=== PATIENT | male | born 1955 | race Caucasian/White ===

== ENCOUNTER → 2016-12-11 | Outpatient (CLI) | payer BC ==
[~2016-12-11] MED LIST: ATOR-22 PO; GLCSC500400 PO; OMEG10007 PO
[2016-12-11 13:08] LABS: ESTIMATED AVERAGE GLUCOSE 120 mg/dl; HA1C FLAG Normal (Normal)
[2016-12-11 16:13] LABS: CREATININE RANDOM URINE 79.5 mg/dl
[2016-12-11 16:27] LABS: RATIO 11.7 mcg/mg (0-30.0)
[2016-12-11 16:34] LABS: ALT/SGPT 25 U/L (12-78); BLOOD UREA NITROGEN 18 mg/dl (7-18); BUN/CREATININE RATIO 21.6 (10-20); CARBON DIOXIDE 25 mmol/L (21-32); CHLORIDE 107 mmol/L (98-107); CHOLESTEROL 104 mg/dl (0-200); CREATININE 0.81 mg/dl (0.60-1.40); GLUCOSE 96 mg/dl (70-99); POTASSIUM 4.2 mmol/L (3.5-5.1); SODIUM 139 mmol/L (136-145); TRIGLYCERIDES 100 mg/dl (0-150); VERY LOW DENSITY LIPOPROT CALC 20 mg/dl
[2016-12-11 16:38] LABS: ALB/GLOB RATIO 1.2 (0.9-2); ALKALINE PHOSPHATASE 85 U/L (45-117); AST/SGOT 15 U/L (15-37); HDL CHOLESTEROL 51 mg/dl; LDL CHOLESTEROL CALCULATED 33 mg/dl
== END | disposition home or self-care (01) ==
LOC: C.LABPVFM 07:32
PROVIDERS: ATTEND Family Medicine
DX: E78.5 Hyperlipidemia, unspecified (principal); N52.9 Male erectile dysfunction, unspecified; E11.21 Type 2 diabetes mellitus with diabetic nephropathy; R42 Dizziness and giddiness

== ENCOUNTER 2018-10-17 09:59 | Inpatient (IN) ==
--- NOTE | 2018-10-02 16:41 | PAT Medication Instructions ---
Medication Instructions Date of Service October 02, 2018 Home Medications Medication Instructions Recorded blood sugar diagnostic strips #10 ea 07/23/18 lancets 33 gauge #100 ea 07/23/18 aspirin [Aspir-81] 81 mg PO QAM atorvastatin 40 mg PO QPM cyanocobalamin (vitamin B-12) 500 mcg PO QAM [Glucosamine Complex-MSM] 2 cap PO QAM ibuprofen 600 mg PO Q6H PRN lisinopril 5 mg PO QPM metformin 1,000 mg PO BID multivitamin 1 tab PO QAM sildenafil 100 mg PO UD PRN ASK your surgeon for instructions aspirin [Aspir-81] 81 mg PO QAM ibuprofen 600 mg PO Q6H PRN STOP taking 2 weeks before surgery [Glucosamine Complex-MSM] 2 cap PO QAM DO NOT take the morning of surgery cyanocobalamin (vitamin B-12) 500 mcg PO QAM metformin 1,000 mg PO BID multivitamin 1 tab PO QAM sildenafil 100 mg PO UD PRN Take evening before surgery atorvastatin 40 mg PO QPM lisinopril 5 mg PO QPM metformin 1,000 mg PO BID sildenafil 100 mg PO UD PRN (if needed) Other Notes If you have any questions please call us at [phone] or [phone] or [phone] or [phone]
--- NOTE | 2018-10-03 09:28 | Anesthesiology Consultation ---
Date of Service October 03, 2018 Assessment & Plan (1) Encounter for pre-operative examination: - Check BSG AM DOS Chart Review Chart Review: Acceptable Risk for Surgery and Patient seen in Pre Admission Testing Teaching & Discussion Pre-Anesthesia Teaching/Discussion Notes: Instructed NPO after midnight before surgery,except medications with 15 cc of water. Medication instructions provided according to the PAT guidelines. History Surgery Operation Date: 10/17/18 11:10 Proposed Procedures p Laparoscopic Robotic Assisted Radical Retropubic Prostatectomy, Possible Open, Possible Pelvic Lymph Node Dissection, Possible Suprapubic Tube Placement - Nile Bell MD Height/Weight Height: 5 ft 8 in Weight: 103.6 kg Allergies Allergy/AdvReac Type Severity Reaction Status Date / Time No Known Allergies Allergy Verified 09/27/18 13:54 Medications Home Medications Medication Instructions Recorded Confirmed Last Taken blood sugar diagnostic strips #10 ea 07/23/18 07/23/18 Unknown lancets 33 gauge #100 ea 07/23/18 07/23/18 Unknown aspirin [Aspir-81] 81 mg PO QAM 09/27/18 09/27/18 Unknown atorvastatin 40 mg PO QPM 09/27/18 09/27/18 Unknown cyanocobalamin (vitamin B-12) 500 mcg PO QAM 09/27/18 09/27/18 Unknown bwzkoaprrmn-ynt-belmxxstg-vitC 2 cap PO QAM 09/27/18 09/27/18 Unknown [Glucosamine Complex-MSM] ibuprofen 600 mg PO Q6H PRN 09/27/18 09/27/18 Unknown lisinopril 5 mg PO QPM 09/27/18 09/27/18 Unknown metformin 1,000 mg PO BID 09/27/18 09/27/18 Unknown multivitamin 1 tab PO QAM 09/27/18 09/27/18 Unknown sildenafil 100 mg PO UD PRN 09/27/18 09/27/18 Unknown Past Medical History Medical History Diabetes type 2, controlled NIDDM Dyslipidemia Erectile dysfunction Hypertension Obesity Cancer prostate Exercise / Class Metabolic Activity II 4-5 Yardwork/Stairs/Walk up hill Past Family History Family History Father Family history of diabetes mellitus Brother Family history of diabetes mellitus Mother Family hx of colon cancer Past Surgical History Surgical History History of colonoscopy History of oral surgery FOR IMPLANTS Hx of vasectomy Past Anesthesia History No Hx of Anesthesia Complications and No Family Hx of Anesthesia Complications History of PONV No Hx of PONV and Hx of Motion Sickness Social History Smoking Status: Never smoker Do You Dip or Chew Tobacco: No Hx Alcohol Use: No Hx Substance Use: No Review of Systems Patient denies chest pain, shortness of breath, dyspnea on exertion, reflux, cough, wheezing, palpitations. Physical Exam Vital Signs VITALS BP 141/67 P 76 TEMP 98.2 SP02 95%RA RESP 18 PHYSICAL Full neck and c-spine range of motion. Full TMJ range of motion. TMD 2.5 finger breaths (small chin) Mallampati Score 2 Dentition: intact, crowns/permanent implants on molars Lungs: clear throughout to auscultation Cardiac: regular rate and rhythm, no murmurs noted Spine: normal Carotid arteries: negative bruit Extremities: no edema Testing Laboratory Results 10/03/18 09:49 10/03/18 09:49 Urine Color Yellow 10/03/18 Unknown Urine Appearance Clear (Clear) 10/03/18 Unknown Urine pH 5.5 (4.5-7.5) 10/03/18 Unknown Ur Specific [place] 1.020 (1.000-1.030) 10/03/18 Unknown Urine Protein Negative (Negative) 10/03/18 Unknown Urine Glucose (UA) Negative (Negative) 10/03/18 Unknown Urine Ketones Negative (Negative) 10/03/18 Unknown Urine Nitrite Negative (Negative) 10/03/18 Unknown Ur Leukocyte Esterase Negative (Negative) 10/03/18 Unknown Blood Type A Positive 10/03/18 09:49 Antibody Screen NEGATIVE 10/03/18 09:49 07/29/18 HGBA1C 6.3% Electrocardiogram Date: 10/03/18 NSR at 69bpm. RBBB. Chest X-Ray Date: 10/03/18 Findings: + NAD Cardiac silhouette mildly enlarged. Apparent pleural thickening may be due to extrapleural fat.
--- NOTE | 2018-10-03 10:28 | XRay Report ---
XR chest Pre-admission PA/Lat CLINICAL HISTORY: 63 years-old Male presenting with preoperative assessment. TECHNIQUE: PA and lateral views of the chest were obtained. COMPARISON: None. FINDINGS: Cardiac silhouette mildly enlarged. Apparent pleural thickening may be due to extrapleural fat. Lungs and pleural spaces clear. Osseous structures normal. Upper abdomen normal. IMPRESSION: 1. No acute cardiopulmonary disease. Electronically signed by: Martin Olmos M.D. 10/03/2018 10:27 AM
[2018-10-03 10:54] LABS: Basophils # (auto) 0.06 K/uL (0-0.2); Basophils % (auto) 0.9 %; Eosinophils # (auto) 0.24 K/uL (0-0.5); Eosinophils % (auto) 3.5 %; Hematocrit (blood only) 45.8 % (42-52); Hemoglobin 16.1 g/dL (14.0-18.0); Immature Granulocytes # (auto) 0.02 K/uL (0.00-0.02); Immature Granulocytes % (auto) 0.3 %; Lymphocytes # (auto) 1.84 K/uL (1.2-3.4); Lymphocytes % (auto) 27.1 %; Mean Corpuscular Hgb Conc 35.2 g/dL (32-36); Mean Corpuscular Volume 88.9 fL (80-100); Mean Platelet Volume 10.9 fL (7.4-10.4); Monocytes # (auto) 0.69 K/uL (0.11-0.59); Monocytes % (auto) 10.1 %; Neutrophils # (auto) 3.95 K/uL (1.4-6.5); Neutrophils % (auto) 58.1 %; Platelet Count 201 K/uL (130-400); RDW Coefficient of Variation 12.4 % (11.5-14.5); RDW Standard Deviation 39.7 fL (36.4-46.3); Red Blood Count 5.15 M/uL (4.7-6.1)
[2018-10-03 10:55] LABS: Appearance Urine Clear (Clear); Bilirubin Urine Negative (Negative); Blood Urine Negative (Negative); Color Urine Yellow; Glucose Urine UA Negative (Negative); Ketones Urine Negative (Negative); Leukocyte Esterase Urine Negative (Negative); Nitrite Urine Negative (Negative); Protein Urine Negative (Negative); Urobilinogen Urine Negative (Negative); pH Urine 5.5 (4.5-7.5)
[2018-10-03 11:11] LABS: BUN Creatinine Ratio 12.8 (10-20); Creatinine Clr Calc Pharmacy 102.7 ml/min; Est GFR (African American) 107.2; Est GFR (Non-African American) 92.5
[~2018-10-17 09:59] MED LIST changes: +ACETAMINOPHEN 1,000 MG/100 ML VIAL IV SCH; -ATOR-22 PO; +CEFAZOLIN 2000MG 2,000 MG/15 ML SYR IV SCH; -GLCSC500400 PO; +HEPARIN SOD 5,000 UNIT/0.5 ML VIAL SQ SCH; +LR 15ML/HR IV SCH; -OMEG10007 PO
[2018-10-17] MEDS ORDERED: GLYCOPYRROLATE 0.2 MG/ML VIAL ONE (10:09)
[2018-10-17] MEDS ORDERED: HYDROmorphone INJ 2 MG/ML SYR/VIAL ONE (10:09)
[2018-10-17] MEDS ORDERED: ONDANSETRON INJ 2 MG/ML 2 ML VIAL ONE (10:09)
[2018-10-17] MEDS ORDERED: SODIUM CHLORIDE 0.9% INJ 10 ML VIAL ONE (10:09)
[2018-10-17] MEDS ORDERED: DEXAMETHASONE SOD INJ 4 MG/ML VIAL ONE (10:09)
[2018-10-17] MEDS ORDERED: ROCURONIUM BROMIDE 10 MG/ML 5 ML VIAL ONE ×3 (10:09→13:55)
[2018-10-17] MEDS ORDERED: PROPOFOL IV EMULSION 10 MG/ML 20 ML VIAL IV ONE (10:09)
[2018-10-17] MEDS ORDERED: NEOSTIGMINE METHYLSULFATE 5 MG/5 ML SYR ONE (10:09)
[2018-10-17] MEDS ORDERED: fentaNYL citrate 100 MCG/2 ML VIAL ONE ×2 (10:09→15:51)
[2018-10-17] MEDS ORDERED: MIDAZOLAM HCL 1 MG/ML 2ML VIAL ONE (10:09)
[2018-10-17] MEDS ORDERED: LIDOCAINE HCL 2% 2 ML VIAL/AMP(20MG/ML) INFIL ONE (10:09)
[2018-10-17] MEDS ORDERED: fentaNYL citrate 100 MCG/2 ML VIAL IV PRN (11:09)
[2018-10-17] MEDS ORDERED: ATROPINE SULFATE 0.1 MG/ML 10ML SYR IV PRN (11:09)
[2018-10-17] MEDS ORDERED: METOCLOPRAMIDE HCL INJ 5 MG/ML 2 ML VIAL IV PRN (11:09)
[2018-10-17] MEDS ORDERED: PROMETHAZINE HCL 12.5 MG in SODIUM CHLORIDE 0.9% 50 ML IV PRN (11:09)
[2018-10-17] MEDS ORDERED: ONDANSETRON INJ 2 MG/ML 2 ML VIAL IV PRN ×2 (11:09→17:35)
[2018-10-17] MEDS ORDERED: ePHEDrine sulfate 50 MG/ML AMP IV PRN (11:09)
[2018-10-17] MEDS ORDERED: HYDROmorphone INJ 2 MG/ML SYR/VIAL IV PRN (11:09)
--- NOTE | 2018-10-17 11:28 | History & Physical Bridge Note ---
Date of Service October 17, 2018 History & Physical Bridge Note I have examined the patient, reviewed the History & Physical and in the interval since the performance of the History & Physical I have noted the following changes of clinical significance: no changes noted
[2018-10-17] MEDS ORDERED: BUPIVACAINE 0.5 % 5 MG/1 ML MPF 30ML VIAL ONE (12:10)
[2018-10-17] MEDS ORDERED: SURGICEL ABSORB HEMOSTAT 2IN X 14IN TOP ONE (13:03)
[2018-10-17] MEDS ORDERED: FLOSEAL HEMOSTATIC MATRIX 10ML TOP ONE (13:04)
[2018-10-17] MEDS ORDERED: BUPIVACAINE 0.5 % 5 MG/1 ML MPF 30ML VIAL INFIL ONE (16:18)
--- NOTE | 2018-10-17 16:23 | Operative Report ---
Post Operative Report Pre & Post Diagnosis Operation Date: 10/17/18 11:10 Pre-Op Diagnosis: Prostate Cancer Post-Op Diagnosis: Prostate Cancer, umbilical hernia, intraabdominal adhesions Procedure Operation Date: 10/17/18 11:10 Actual Procedures p Laparoscopic Robotic Assisted Radical Retropubic Prostatectomy,Bilateral Pelvic Lymph Node Dissection, Laparoscopic Lysis of Adhesions, Repair of Umbilical Hernia - Nile Bell MD Surgeon Nile Bell MD [employer] BASHIR Mcnamara Estimated Blood Loss 300 Findings Consistent with Post-Op Diagnosis Specimens Periprostatic fat, prostate + SVs, L and R PLN, umbilical hernia fat and sac Description of Procedure See above I attest to the content of the Intraoperative Record and any orders documented therein. Any exceptions are noted below.
[2018-10-17 16:58] LABS: Basophils # (auto) 0.03 K/uL (0-0.2); Basophils % (auto) 0.3 %; Eosinophils # (auto) 0.03 K/uL (0-0.5); Eosinophils % (auto) 0.3 %; Hematocrit (blood only) 44.9 % (42-52); Immature Granulocytes # (auto) 0.04 K/uL (0.00-0.02); Immature Granulocytes % (auto) 0.3 %; Lymphocytes # (auto) 0.98 K/uL (1.2-3.4); Lymphocytes % (auto) 8.3 %; Mean Corpuscular Volume 87.9 fL (80-100); Mean Platelet Volume 10.4 fL (7.4-10.4); Monocytes # (auto) 0.41 K/uL (0.11-0.59); Monocytes % (auto) 3.5 %; Neutrophils # (auto) 10.35 K/uL (1.4-6.5); Neutrophils % (auto) 87.3 %; Platelet Count 175 K/uL (130-400); RDW Coefficient of Variation 12.2 % (11.5-14.5); Red Blood Count 5.11 M/uL (4.7-6.1); White Blood Count 11.84 K/uL (4.8-10.8)
[2018-10-17 17:19] LABS: Mean Corpuscular Hgb Conc 35.6 g/dL (32-36)
[2018-10-17] MEDS: LACTATED RINGER'S 1,000 ML IV SCH (17:25)
[2018-10-17 17:28] LABS: BUN Creatinine Ratio 14.3 (10-20); Calcium 8.4 mg/dl (8.5-10.1); Creatinine Clr Calc Pharmacy 87.8 ml/min; Est GFR (African American) 89.8; Est GFR (Non-African American) 77.5
[2018-10-17] MEDS ORDERED: MoRPHine SULFATE 10 MG/ML CARP/VIAL IV PRN (17:35)
[2018-10-17] MEDS ORDERED: OXYCODONE HCL IR 5 MG TAB (IMMEDIATE RELEASE) PO PRN (17:35)
[2018-10-17] MEDS ORDERED: ACETAMINOPHEN 1,000 MG/100 ML VIAL IV PRN (17:35)
--- NOTE | 2018-10-17 17:39 | Anesthesiology Progress Note ---
Date of Service October 17, 2018 Anesthesia Post Procedure Vital Signs Vital Signs: Temp Pulse Pulse Resp BP BP Pulse Ox 10/17/18 17:05 91 H 14 146/87 H 97 10/17/18 16:55 85 14 155/85 H 100 10/17/18 16:45 87 13 157/94 H 100 10/17/18 16:37 36.4 C L 100 H 13 156/87 H 99 10/17/18 10:51 36.7 C 75 18 150/73 H 95 Transfer of Care Handoff Completed per policy Notes Mental Status: alert / awake / arousable and participated in evaluation Patient Amnestic to Procedure: Yes Nausea / Vomiting: adequately controlled Pain: adequately controlled Airway Patency, RR, SpO2: stable & adequate BP & HR: stable & adequate Hydration State: stable & adequate Anesthetic Complications: no major complications apparent
[2018-10-17] MEDS ORDERED: PHARMACY GLYCEMIC MGMT CONSULT PRN (17:55)
[2018-10-17 18:27] LABS: INR 1.1 (0.9-1.1); Prothrombin Time 10.9 Seconds (9.0-12.0)
[2018-10-17] MEDS ORDERED: GLUCAGON FOR INJ 1 MG VIAL IM PRN (19:30)
[2018-10-17] MEDS ORDERED: CARBOHYDRATES FOR HYPOGLYCEMIA PO PRN (19:30)
[2018-10-17] MEDS ORDERED: GLUCOSE 10 TABS/TUBE PO PRN (19:30)
[2018-10-17] MEDS ORDERED: GLUCOSE 40% GEL 15 GM TUBE PO PRN (19:30)
[2018-10-17] MEDS ORDERED: DEXTROSE 50% 50 ML SYRINGE IV PRN (19:30)
--- NOTE | 2018-10-17 20:17 | Operative Report ---
DATE OF OPERATION: 10/17/2018 PREOPERATIVE DIAGNOSES: High volume pT2b [place] 4+3 CAP, pretreatment PSA of 59. POSTOPERATIVE DIAGNOSES: Same. PROCEDURE: Robot-assisted laparoscopic radical retropubic prostatectomy with bilateral pelvic lymph node dissection, laparoscopic lysis of adhesions and repair of umbilical hernia. SURGEON: Dr. Nile Bell. HOME CARE CHAPLAIN: BASHIR Gonzalez. Jail Guard was present throughout the case for retraction, instrument passage and suture passage, management of a camera, patient positioning and intra-abdominal access, suction, application of hemostatic agents and general patient safety. ANESTHESIA: General anesthesia with endotracheal intubation plus local at all port sites. ESTIMATED BLOOD LOSS: 300 mL. IV FLUIDS: 1500 mL of crystalloid. DRAINS LEFT IN PLACE: Included a #10 BAO drain in the left lower quadrant and a 20-Kazakh silicone Boyer catheter with 15 mL of sterile water in the balloon per urethra. SPECIMENS SENT TO PATHOLOGY: Periprosthetic fat, prostate plus seminal vesicles, left pelvic lymph nodes, right pelvic lymph nodes, umbilical hernia fat and an umbilical hernia sac. COMPLICATIONS: None. FINDINGS: Watertight anastomosis with excellent hemostasis at the completion of the case. The umbilical hernia with intra-abdominal adhesions requiring extensive lysis to allow for abdominal access, watertight anastomosis after completion of case. Hyperostosis pubis and periprostatic inflammation present. BRIEF HISTORY: Mr. Roberson is a pleasant 63-year-old male seen by my partner Dr. Giron for history of an elevated PSA and abnormal digital rectal examination. A transrectal ultrasound-guided prostate biopsy has demonstrated high volumes of [place] 3+4 prostate cancer. The patient is here today for a radical prostatectomy to manage his disease. Risks and benefits of intervention have been discussed with the patient and family who vocalize good understanding of the treatment plan. Please see H and P for further details. DESCRIPTION OF PROCEDURE: The patient was properly identified and brought into the operative suite after identification of appropriate consent on the chart. General anesthesia with endotracheal intubation was initiated. The patient was prepped and draped in a standard fashion for this procedure. maritime pilot-out procedure was followed. All port sites were anesthetized with local prior to incision. Supraumbilical incision was made in the lateral fashion and it was noted that with every access port significant subcutaneous bleeding was encountered. Abdomen was entered under direct visualization using a 0 degree laparoscope and visual obturator. A copious amount of adhesions at the level of the access were identified, felt to be due to the patient's umbilical hernia. However, these were able to be circumnavigated and the remainder of the abdomen observed safely. Remaining ports were placed for 4th arm robotic template including 2 left-sided 7 mm ports, 1 right-sided 7 mm robotic port and a 5 and 12 mm assistant teacher primary port. The camera was brought in via the 12 mm assistant teacher primary port and using hot and cold scissors as well as blunt Kitner dissection and laparoscopic Bovie, the patient's umbilical hernia sac and other mid abdominal adhesions were able to be divided and reduced. The umbilical hernia was appreciated to contain omental fat with no bowel or other worrisome contents. After this was complete, the patient was placed in Trendelenburg and the robot was brought in and docked. Copious pelvic bowel adhesions were also taken using cold scissors, especially in the region of the sigmoid colon. The 0 degree robotic lens was used to drop the bladder down to the level of the pubic bone. The patient was appreciated at this point to have a significant volume of hyperostosis pubis which precluded visibility of the apex of the prostate or the dorsal venous complex. Endopelvic fascia was sharply entered. The patient was also noted to have a rather narrow pelvis with significant inflammation and oozing around the prostate gland. Endopelvic fascia was sharply entered and a dissection was carried down to the level of the apex as possible. A 30-degree up lens was required to visualize the patient's dorsal venous complex and the apex of the gland. At this point, a dorsal venous complex was oversewn twice, the first time in a [id number] fashion using a 2-0 V-Loc suture and the second in a single pass with a 0 Vicryl suture on a CT1 needle. A significant interference from the patient's bony protuberance at the level of the pubis was appreciated. After this was complete, a 0 degree lens was replaced. Bladder neck was placed on traction and a hook cautery was used to dissect down to the level of the Boyer catheter. Posterior bladder neck was then divided and dropped in the midline. This was continued until the vas deferens and the seminal vesicles were able to be identified. Unfortunately, due to the copious oozing from the plane of dissection and the narrow aspect of the pelvis, further dissection posteriorly was not able to be completed at this point. Attention was then turned to the prosthetic pedicles on both sides where dissection was initiated. Seeing the patient's high grade disease and the plan for a relatively wide dissection, a vessel sealer was used to take the prostatic pedicles in the lateral attachments of the prostate gland. After this was complete, the vas deferens and seminal vesicles were able to be dissected free. Vas deferens were divided and seminal vesicles were mobilized to their tips. Cold scissors were used to drop the rectum in the midline at the level of the apex of the prostate gland. After this was complete, attention was turned to the dorsal venous bundle which was divided using hot scissors. Urethra was skeletonized with a good urethral stump being present. This was then divided and the vascular rectourethralis attachments were also divided. After the prostate was freed, it was brought up into the abdominal cavity and placed within an EndoCatch bag for retrieval at the end of the case. FloSeal tissue sealant was placed on the prostatic bed followed by a sheet of Surgicel for additional hemostasis. The patient's bladder neck was noted to be average in its aperture but not continent at the time of dissection. Generous irrigation of the pelvis was performed and rectum was insufflated under saline irrigation and noted to distend to be free of any injuries. Attention was then turned to the obturator lymph node dissections on both sides. These were carried out using the external iliac vein, obturator nerve and pelvic side wall as the limits of dissection. Lymph nodes were noted to be unremarkable. A significant lymphatic vessels and associated blood vessels were controlled using Weck clips or monopolar cautery as necessary. The obturator nerve was identified on both sides and appreciated to be free of injury after completion of dissection. After both sides were dissected free, the lymph node packets were able to be brought out by the assistant teacher primary through the 12 mm port. FloSeal tissue sealant was placed within the obturator fossa on both sides to allow for excellent hemostasis. Attention was turned to the pelvis where excellent hemostasis was appreciated. Using a double armed V-Loc suture, a circumferential running anastomosis was performed using perineal pressure and circumnavigating the patient's hypertrophic pubis. An excellent posterior urethral back wall was appreciated prior to completion of the case. Seeing the nature of the patient's pelvic anatomy, a 20-Kazakh silicone Boyer catheter was placed with 15 mL of sterile water in the balloon. This was verified to be visually entering the bladder prior to completion of the closure. A small redundancy at the 12 o'clock position of the bladder neck was closed using the excess V-Loc suture in a keyhole fashion. A greater than 120 mL of sterile irrigant was placed within the bladder which was then tested and compressed without evidence of leak from the anastomosis. Sutures were removed and suture and instrument counts were correct. Fourth arm was removed and a #10 BAO drain was brought in via the fourth arm port. Robotic instruments were removed and camera was brought in via the assistant teacher primary port. String to the EndoCatch bag was brought up through the supraumbilical incision. Ports were removed and excess carbon dioxide gas was removed from the abdomen. Supraumbilical incision was enlarged sufficiently to allow for removal of the specimen bag. At this point, the water fat, which had been within the patient's umbilical hernia had been transected was noted to be entering and interfering with the plane of dissection. This was easily able to be removed and dissected free using Bovie cautery. This was handed off as umbilical hernia fat. On completion of the closure, the umbilical hernia sac was also noted to interfere with the ability to close. This was removed and sent as a separate pathologic specimen of the umbilical hernia sac. Adequate fascial tissue was appreciated in the inferior location to the removed sac and fat. Using a #1 Prolene suture, the patient's umbilical hernia and incision were closed together in a running fashion with excellent closure of the fascia being appreciated. Subcutaneous tissues were performed using 2-0 Vicryl sutures with excellent closure. 2-0 silk was used to secure the drain in place and 4-0 Monocryl was used at the remaining skin sites for closure along with Dermabond dressing. Boyer catheter was placed to gravity drainage and BOA to bulb suction. Anesthesia was reversed and patient was transferred to the recovery room in stable condition. FOLLOWUP CARE: The patient will be admitted to the floor for standard postoperative management. I attest to the content of the Intraoperative Record and any orders documented therein. Any exceptions are noted below. JOHN
[2018-10-17] MEDS: OXYCODONE HCL IR 5 MG TAB (IMMEDIATE RELEASE) PO PRN (20:36)
[2018-10-17] MEDS: FAMOTIDINE 20 MG in SYRINGE 3 ML IV SCH (20:37)
[2018-10-17] MEDS: CEFAZOLIN 2000MG 2,000 MG/15 ML SYR IV SCH (20:37)
[2018-10-17] MEDS: DOCUSATE SODIUM 100 MG CAP PO SCH (20:37)
[2018-10-17] MEDS: HEPARIN SOD 5,000 UNIT/0.5 ML VIAL SQ SCH (20:39)
[2018-10-17] MEDS: INSULIN ASPART 100 UNITS/ML 3 ML PEN SC SCH (20:41)
[2018-10-17] MEDS ORDERED: ATORVASTATIN 40 MG TAB PO SCH (21:00)
[2018-10-17] MEDS ORDERED: LISINOPRIL 5 MG TAB PO SCH (21:00)
[2018-10-18] MEDS ORDERED: INSULIN ASPART 100 UNITS/ML 3 ML PEN SC SCH
[2018-10-18] MEDS: OXYCODONE HCL IR 5 MG TAB (IMMEDIATE RELEASE) PO PRN ×3 (00:16→11:49)
[2018-10-18] MEDS: LACTATED RINGER'S 1,000 ML IV SCH (00:30)
[2018-10-18] MEDS: CEFAZOLIN 2000MG 2,000 MG/15 ML SYR IV SCH ×2 (03:58→13:42)
--- NOTE | 2018-10-18 07:29 | Anesthesiology Progress Note ---
Date of Service October 18, 2018 Anesthesia Post Procedure Vital Signs Vital Signs: Temp Pulse Pulse Pulse Resp BP BP 10/18/18 04:00 36.8 C 87 16 123/72 10/17/18 23:14 37.1 C 100 H 16 117/68 10/17/18 20:24 36.7 C 109 H 17 140/73 10/17/18 19:32 36.5 C 106 H 17 145/74 H 10/17/18 18:24 36.3 C L 102 H 18 161/67 H 10/17/18 17:37 36.9 C 89 16 148/79 H 10/17/18 17:05 91 H 14 146/87 H 10/17/18 16:55 85 14 155/85 H 10/17/18 16:45 87 13 157/94 H 10/17/18 16:37 36.4 C L 100 H 13 156/87 H 10/17/18 10:51 36.7 C 75 18 150/73 H Pulse Ox 10/18/18 04:00 93 10/17/18 23:14 92 10/17/18 20:24 94 10/17/18 19:32 96 10/17/18 18:24 95 10/17/18 17:37 96 10/17/18 17:05 97 10/17/18 16:55 100 10/17/18 16:45 100 10/17/18 16:37 99 10/17/18 10:51 95 Notes Mental Status: alert / awake / arousable and participated in evaluation Patient Amnestic to Procedure: Yes Nausea / Vomiting: improving with treatment Pain: adequately controlled Airway Patency, RR, SpO2: stable & adequate BP & HR: stable & adequate Hydration State: stable & adequate Anesthetic Complications: Pt Satisfied with anesthetic care
[2018-10-18 07:56] LABS: Basophils # (auto) 0.01 K/uL (0-0.2); Basophils % (auto) 0.1 %; Eosinophils # (auto) 0.01 K/uL (0-0.5); Eosinophils % (auto) 0.1 %; Hemoglobin 14.9 g/dL (14.0-18.0); Immature Granulocytes # (auto) 0.03 K/uL (0.00-0.02); Immature Granulocytes % (auto) 0.2 %; Lymphocytes # (auto) 1.36 K/uL (1.2-3.4); Lymphocytes % (auto) 10.3 %; Mean Corpuscular Hgb Conc 35.5 g/dL (32-36); Mean Platelet Volume 10.8 fL (7.4-10.4); Monocytes # (auto) 2.21 K/uL (0.11-0.59); Monocytes % (auto) 16.8 %; Neutrophils # (auto) 9.54 K/uL (1.4-6.5); Neutrophils % (auto) 72.5 %; Platelet Count 201 K/uL (130-400); RDW Coefficient of Variation 12.5 % (11.5-14.5); RDW Standard Deviation 40.3 fL (36.4-46.3); Red Blood Count 4.72 M/uL (4.7-6.1); White Blood Count 13.16 K/uL (4.8-10.8)
[2018-10-18 08:26] LABS: BUN Creatinine Ratio 12.2 (10-20); Calcium 8.6 mg/dl (8.5-10.1); Creatinine Clr Calc Pharmacy 81.4 ml/min; Est GFR (Non-African American) 70.8; Potassium 3.8 mmol/L (3.5-5.1)
[2018-10-18] MEDS ORDERED: MULTIVITAMIN TAB PO SCH (09:00)
--- NOTE | 2018-10-18 09:00 | Urology Progress Note ---
Date of Service October 18, 2018 Assessment & Plan (1) Prostate cancer genetic susceptibility: (2) Prostate cancer: A/P 63 yo male with CAP POD#1 s/p RALRP, BPLND. Doing well. Regular diet, HTIVF, henao training. Continue ambulation. Anticipate DC home after lunch. DC instructions reviewed, intraop findings reviewed, OP appointments confirmed. Subjective 63 yo male POD#1 s/p RALRP, BPLND, POD#1. Doing well, ambulatory yesterday, santos clears with good appetite, comfortable. Family in room, no other c/o or events noted. Review of Systems Constitutional: no fever and no chills Eyes: no diplopia Ear, Nose, Mouth, Throat: no ear trauma Respiratory: no hemoptysis Cardiovascular: no chest pain Integumentary: no acne and no boil Neurologic: no paralysis Psychiatric: no hopelessness Allergy / Immunological: no tongue swelling Physical Exam Constitutional: well developed, well nourished and + obese; no acute distress Eyes: eyes not dysmorphic ENMT: Ears: no external ear abnormality Neck: trachea midline; no anterior neck swelling Respiratory: no respiratory distress and does not use accessory muscles Cardiovascular: Vessels: radial pulses present Gastrointestinal (Abdomen): Inspection/Auscultation: abdomen not distended Percussion/Palpation: abdomen soft; abdomen nontender inc c/d/i with minimal bruising, umbilical hernia resolved Musculoskeletal: Head/Neck/Chest: normocephalic and neck supple Skin: normal turgor Neurologic: awake; not obtunded Psychiatric: Orientation: oriented x 3 Lymphatic: no lymphadenopathy Results & Data Vital Signs (Past 12 Hours) Vital Signs Temp Pulse Pulse Resp BP Pulse Ox 10/18/18 07:45 36.9 C 80 20 100/65 94 10/18/18 04:00 36.8 C 87 16 123/72 93 10/17/18 23:14 37.1 C 100 H 16 117/68 92 Laboratory Results Laboratory Results - last 48 hr 10/17/18 10/17/18 10/17/18 10:43 16:40 16:47 WBC 11.84 H RBC 5.11 Hgb 16.0 Hct 44.9 MCV 87.9 MCH 31.3 MCHC 35.6 RDW Std Deviation 39.0 RDW Coeff of Lavinia 12.2 Plt Count 175 MPV 10.4 Immature Gran % (Auto) 0.3 Neut % (Auto) 87.3 Lymph % (Auto) 8.3 [place] % (Auto) 3.5 Eos % (Auto) 0.3 Baso % (Auto) 0.3 Immature Gran # (Auto) 0.04 H Neut # (Auto) 10.35 H Lymph # (Auto) 0.98 L [place] # (Auto) 0.41 Eos # (Auto) 0.03 Baso # (Auto) 0.03 PT INR Sodium Potassium Chloride Carbon Dioxide Anion Gap BUN Creatinine Est Cr Clr Drug Dosing Est GFR ( Amer) Est GFR (Non-Af Amer) BUN/Creatinine Ratio Glucose POC Glucose 122 H 140 H Calcium 10/17/18 10/17/18 10/17/18 16:47 17:34 17:45 WBC RBC Hgb Hct MCV MCH MCHC RDW Std Deviation RDW Coeff of Lavinia Plt Count MPV Immature Gran % (Auto) Neut % (Auto) Lymph % (Auto) [place] % (Auto) Eos % (Auto) Baso % (Auto) Immature Gran # (Auto) Neut # (Auto) Lymph # (Auto) [place] # (Auto) Eos # (Auto) Baso # (Auto) PT INR Sodium 140 Potassium 4.4 Chloride 106 Carbon Dioxide 25 Anion Gap 9.0 BUN 15 Creatinine 1.03 Est Cr Clr Drug Dosing 87.8 Est GFR ( Amer) 89.8 Est GFR (Non-Af Amer) 77.5 BUN/Creatinine Ratio 14.3 Glucose 155 H POC Glucose 162 H Calcium 8.4 L 10/17/18 10/17/18 10/18/18 18:03 20:33 00:02 WBC RBC Hgb Hct MCV MCH MCHC RDW Std Deviation RDW Coeff of Lavinia Plt Count MPV Immature Gran % (Auto) Neut % (Auto) Lymph % (Auto) [place] % (Auto) Eos % (Auto) Baso % (Auto) Immature Gran # (Auto) Neut # (Auto) Lymph # (Auto) [place] # (Auto) Eos # (Auto) Baso # (Auto) PT 10.9 INR 1.1 Sodium Potassium Chloride Carbon Dioxide Anion Gap BUN Creatinine Est Cr Clr Drug Dosing Est GFR ( Amer) Est GFR (Non-Af Amer) BUN/Creatinine Ratio Glucose POC Glucose 161 H 133 H Calcium 0810/18/18 10/18/18 04:01 07:24 07:24 WBC 13.16 H RBC 4.72 Hgb 14.9 Hct 42.0 MCV 89.0 MCH 31.6 MCHC 35.5 RDW Std Deviation 40.3 RDW Coeff of Lavinia 12.5 Plt Count 201 MPV 10.8 H Immature Gran % (Auto) 0.2 Neut % (Auto) 72.5 Lymph % (Auto) 10.3 [place] % (Auto) 16.8 Eos % (Auto) 0.1 Baso % (Auto) 0.1 Immature Gran # (Auto) 0.03 H Neut # (Auto) 9.54 H Lymph # (Auto) 1.36 [place] # (Auto) 2.21 H Eos # (Auto) 0.01 Baso # (Auto) 0.01 PT INR Sodium 140 Potassium 3.8 Chloride 105 Carbon Dioxide 27 Anion Gap 8.0 BUN 14 Creatinine 1.11 Est Cr Clr Drug Dosing 81.4 Est GFR ( Amer) 82.0 Est GFR (Non-Af Amer) 70.8 BUN/Creatinine Ratio 12.2 Glucose 149 H POC Glucose 124 H Calcium 8.6 10/18/18 08:04 WBC RBC Hgb Hct MCV MCH MCHC RDW Std Deviation RDW Coeff of Lavinia Plt Count MPV Immature Gran % (Auto) Neut % (Auto) Lymph % (Auto) [place] % (Auto) Eos % (Auto) Baso % (Auto) Immature Gran # (Auto) Neut # (Auto) Lymph # (Auto) [place] # (Auto) Eos # (Auto) Baso # (Auto) PT INR Sodium Potassium Chloride Carbon Dioxide Anion Gap BUN Creatinine Est Cr Clr Drug Dosing Est GFR ( Amer) Est GFR (Non-Af Amer) BUN/Creatinine Ratio Glucose POC Glucose 181 H Calcium PG Care Time/CCT Total # of Minutes Spent Total Time Spent with Patient: Total time spent is greater than 50% in coordination of care (as documented) at patient's floor/unit and/or counseling patient:
--- NOTE | 2018-10-18 09:01 | Discharge Summary ---
Date of Service October 18, 2018 Admission HPI Per Admitting Provider Patient with CAP for RALRP. See H&P for further details. Admission Exam (Per Admitting) Constitutional well developed, well nourished and + obese; no acute distress Eyes eyes not dysmorphic ENMT Ears: no external ear abnormality Neck trachea midline; no anterior neck swelling Respiratory no respiratory distress and does not use accessory muscles Cardiovascular Vessels: radial pulses present Gastrointestinal (Abdomen) Inspection/Auscultation: abdomen not distended Percussion/Palpation: abdomen soft; abdomen nontender Musculoskeletal Head/Neck/Chest: normocephalic and neck supple Skin normal turgor Neurologic awake; not obtunded Psychiatric Orientation: oriented x 3 Lymphatic no lymphadenopathy Discharge Data Procedures Performed Operation Date: 10/17/18 11:10 Actual Procedures p Laparoscopic Robotic Assisted Radical Retropubic Prostatectomy,Bilateral Pelvic Lymph Node Dissection, Laparoscopic Lysis of Adhesions, Repair of Umbilical Hernia - Nile Bell MD Hospital Course (1) Prostate cancer genetic susceptibility: (2) Prostate cancer: A/P 63 yo male with CAP POD#1 s/p RALRP, BPLND. Doing well. Regular diet, HTIVF, henao training. Continue ambulation. Anticipate DC home after lunch. DC instructions reviewed, intraop findings reviewed, OP appointments confirmed. Discharge Instructions See DC instruction sheets and Rx for further details. OP f/u confirmed.
[2018-10-18] MEDS: DOCUSATE SODIUM 100 MG CAP PO SCH (09:23)
[2018-10-18] MEDS: INSULIN ASPART 100 UNITS/ML 3 ML PEN SC SCH ×2 (09:24→13:43)
[2018-10-18] MEDS: HEPARIN SOD 5,000 UNIT/0.5 ML VIAL SQ SCH (09:25)
[2018-10-18] MEDS: FAMOTIDINE 20 MG in SYRINGE 3 ML IV SCH (09:31)
== END 2018-10-18 13:52 | disposition home or self-care (01) | DRG 708 ==
LOC: ASU 09:59 → 3N 16:29